=== PATIENT | female | born 1930 | race Hispanic/Latino ===

== ENCOUNTER 2018-01-19 14:43 | Outpatient (CLI) | payer MEDICARE ==
--- NOTE | 2018-01-20 02:54 | XRay Report ---
FINAL REPORT PROCEDURE: XR KNEE 4+V RT TECHNIQUE: RIGHT knee radiographs, AP and lateral views. CPT 18262 HISTORY: RIGHT KNEE PAIN COMPARISON: No prior studies are available for comparison. FINDINGS: Fracture (s) and/or Dislocation(s): None . Alignment: Normal . 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 Soft tissues: There is prepatellar soft tissue swelling. There is no joint effusion.. Bone mineralization: Normal . Foreign bodies: None . IMPRESSION: There is no fracture or malalignment. 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 There is prepatellar soft tissue swelling. There is no joint effusion..
== END 2018-01-19 14:44 | disposition home or self-care (01) ==
LOC: SPVIMAG 14:43
PROVIDERS: ATTEND Orthopaedic Surgery Sports Medicine
DX: M17.11 Unilateral primary osteoarthritis, right knee (principal)